=== PATIENT | female | born 1930 | race Caucasian/White ===

== ENCOUNTER 2016-10-03 17:25 | Inpatient (IN) | payer MEDICARE, OTHER ==
[~2016-10-03] VITALS: Ht 144.8 cm; Wt 48.1 kg
[2016-10-03] MEDS ORDERED: BETAGAN EYEBOTH (19:32)
[2016-10-03] MEDS ORDERED: PRINIVIL10 MG PO (19:33)
[2016-10-03] MEDS ORDERED: NORVASC5 MG PO (19:33)
[2016-10-03] MEDS ORDERED: COREG25 MG PO (19:34)
[2016-10-03] MEDS ORDERED: TYLENOL325 MG PO (19:56)
[2016-10-03] MEDS ORDERED: TYLENOL500 MG PO (19:58)
[2016-10-03] MEDS ORDERED: TYLENOL PM EX-1 EACH PO (20:00)
== END 2016-10-04 07:33 | disposition short-term general hospital (02) | DRG 208 ==
LOC: ER 17:25 → IP 19:15
PROVIDERS: ADMIT Family Medicine
PROC: 5A1935Z Respiratory Ventilation, Less than 24 Consecutive Hours (ICD-10-PCS; principal; 2016-10-04)
PROC: 0BH17EZ Insertion of Endotracheal Airway into Trachea, Via Natural or Artificial Opening (ICD-10-PCS; 2016-10-04)
DX: J09.X1 Influenza due to identified novel influenza A virus with pneumonia (principal); I50.9 Heart failure, unspecified; I10 Essential (primary) hypertension; Z79.899 Other long term (current) drug therapy; Z91.018 Allergy to other foods; S69.82XA Other specified injuries of left wrist, hand and finger(s), initial encounter; W18.30XA Fall on same level, unspecified, initial encounter
CPT/HCPCS: J0330; J0456; J0696; J1650; J1940; J2060; J2250; Q9967